=== PATIENT | female | born 1955 | race Caucasian/White ===

== ENCOUNTER 2017-08-10 06:11 | Day surgery (SDC) | payer OTHER ==
[~2017-08-10] VITALS: Ht 154.9 cm; Wt 57.8 kg
[~2017-08-10 06:11] MED LIST: CALC1TAB80 PO; HYDR-2254 PO; LISI20TA11 PO; METF500T4 PO; PRAV20TA63 PO; [UNRECOGNIZED DRUG - CODE] PO
[2017-08-10 06:57] VITALS: Ht 154.9 cm; Wt 57.8 kg
[2017-08-10] MEDS ORDERED: PRAV40TA76 PO (07:16)
[2017-08-10] MEDS ORDERED: CHOL100062 PO (07:16)
[2017-08-10] MEDS ORDERED: SITA100T8 PO (07:16)
[2017-08-10] MEDS ORDERED: GLIM1TAB2 PO (07:16)
[2017-08-10] MEDS ORDERED: NOL20 PO (07:16)
[2017-08-10] MEDS ORDERED: MTF1000T PO (07:16)
[2017-08-10] MEDS ORDERED: AMLO-147 PO (07:16)
[2017-08-10] MEDS ORDERED: LISI20TA11 PO (07:16)
[2017-08-10 07:22] VITALS: BP 224/93; PULSE 119; RESP 22
--- NOTE | 2017-08-10 08:30 | OPPN ---
Date/Time of Note Date/Time of Note DATE: 08/10/17 TIME: 08:28 Operative Report Preoperative Diagnosis Screening Postoperative Diagnosis Prominent fold on the right colon was biopsied Transverse colon polyp was removed Internal hemorrhoids Operation/Procedure Performed Colonoscopy and biopsy Surgeon see signature line assistant at surgery None Anesthesia: moderate sedation Estimated blood loss: none Transfusion Required none Specimen Mucosal biopsy of the colon Biopsy: Polyp Grafts/Implants none Complications none JAIME BISHOP MD Aug 10, 2017 08:30
[2017-08-10] MEDS ORDERED: MIDAZOLAM 1 MG/ML 2 ML INJ ONE ×2 (08:33)
[2017-08-10] MEDS ORDERED: FENTAnyl 50 MCG/ML VIAL ONE (08:33)
[2017-08-10 08:50] VITALS: BP 188/62; RESP 20
--- NOTE | 2017-08-11 06:25 | GILP ---
DATE OF PROCEDURE: NAME OF PROCEDURES: Colonoscopy and biopsy. SURGEON: Jaime Aceves MD. PREOPERATIVE DIAGNOSIS: Screening colonoscopy. POSTOPERATIVE DIAGNOSES: 1. Colonoscopy all the way to the cecum. 2. Prominent fold in the right colon and biopsies were taken for histopathology. 3. Small transverse colon polyp was removed. 4. Internal hemorrhoids. INDICATION FOR THE PROCEDURE: Ms. Rosemary Em is a 61-year-old female patient who was scheduled for screening colonoscopy. She had a strong family history of colon cancer. The procedure and possible complications were well explained to the patient. The patient understood and consented to the procedure. DESCRIPTION OF PROCEDURE: Under the influence of fentanyl and Versed, the colonoscope was carefully introduced in the rectum and under direct vision, it was advanced all the way to the cecum. FINDINGS: The patient had a prominent fold in the right colon and biopsies were taken for histopath ology. She had a small transverse colon polyp and it was removed. She had internal hemorrhoids. She tolerated the procedure very well and there was no complication from the procedure. At the end of the procedures, she was awake with stable vital signs and she was discharged home to the care of her family. IMPRESSION: Please see postoperative diagnosis. PLAN: 1. Await histopathology report. 2. Next screening colonoscopy in 5 years. Dictated By: JAIME NOEL/JIGAR Conf#: [id number] DID#: [id number]
== END 2017-08-10 10:32 | disposition home or self-care (01) ==
LOC: GIL 06:11 → MERGE 06:11 → GIL 06:16
PROVIDERS: ATTEND Internal Medicine Gastroenterology
DX: Z12.11 Encounter for screening for malignant neoplasm of colon (principal); D12.3 Benign neoplasm of transverse colon; K64.8 Other hemorrhoids; E11.9 Type 2 diabetes mellitus without complications; I10 Essential (primary) hypertension
CPT/HCPCS: 45380; 82962; 88305; J2250; J3010; Z7610